=== PATIENT | female | born 1940 | race Two or more races ===

== ENCOUNTER 2022-07-02 10:00 | Outpatient (CLI) | payer MEDICARE, OTHER | END 2022-07-02 23:59 | disposition home or self-care (01) | LOC: MSC 10:00 | PROVIDERS: ATTEND Anesthesiology | DX: M76.32 Iliotibial band syndrome, left leg (principal); M70.62 Trochanteric bursitis, left hip; M16.9 Osteoarthritis of hip, unspecified; M51.36 Other intervertebral disc degeneration, lumbar region; M54.16 Radiculopathy, lumbar region; M40.299 Other kyphosis, site unspecified; G89.4 Chronic pain syndrome; M25.562 Pain in left knee; M25.561 Pain in right knee; Z99.89 Dependence on other enabling machines and devices; Z79.1 Long term (current) use of non-steroidal anti-inflammatories (NSAID) | CPT/HCPCS: 96372; G0463; J3301; J3490 ==

== ENCOUNTER 2022-08-13 11:50 | Outpatient (CLI) | payer MEDICARE, OTHER | END 2022-08-13 23:59 | disposition home or self-care (01) | LOC: MSC 11:50 | PROVIDERS: ATTEND Anesthesiology | DX: M76.32 Iliotibial band syndrome, left leg (principal); M70.62 Trochanteric bursitis, left hip; M16.9 Osteoarthritis of hip, unspecified; G89.4 Chronic pain syndrome; M51.36 Other intervertebral disc degeneration, lumbar region; M54.16 Radiculopathy, lumbar region; M40.299 Other kyphosis, site unspecified; M25.562 Pain in left knee; M25.561 Pain in right knee; Z99.89 Dependence on other enabling machines and devices; Z79.1 Long term (current) use of non-steroidal anti-inflammatories (NSAID) ==

== ENCOUNTER 2022-09-24 11:10 | Outpatient (CLI) | payer MEDICARE, OTHER | END 2022-09-24 23:59 | disposition home or self-care (01) | LOC: MSC 11:10 | PROVIDERS: ATTEND Anesthesiology | DX: M70.60 Trochanteric bursitis, unspecified hip (principal); M76.32 Iliotibial band syndrome, left leg; M76.31 Iliotibial band syndrome, right leg; G89.4 Chronic pain syndrome; M16.9 Osteoarthritis of hip, unspecified; M51.36 Other intervertebral disc degeneration, lumbar region; M54.16 Radiculopathy, lumbar region; M40.299 Other kyphosis, site unspecified; M25.562 Pain in left knee; M25.561 Pain in right knee; Z99.89 Dependence on other enabling machines and devices ==